=== PATIENT | male | born 1970 | race Caucasian/White ===

== ENCOUNTER 2017-11-15 11:40 | Emergency (ER) | payer OTHER ==
[2017-11-15] MEDS ORDERED: 0.9 % SODIUM CHLORIDE 1,000 ML BAG IV ONE (13:40)
[2017-11-15] MEDS ORDERED: ONDANSETRON HCL IV 4 MG/2 ML VIAL IVP ONE (13:40)
--- NOTE | 2017-11-15 13:41 | Emergency Department Record ---
History of Present Illness - General Chief complaint: Nausea, Vomiting, Diarrhea Stated complaint: NAUSEA/DIZZINESS Time Seen by Provider: 11/15/17 13:31 Source: Patient Mode of Arrival: Ambulatory Limitations: No limitations - History of Present Illness Initial comments: 47 yo male presents with feeling weak, lightheaded, mild nausea, few loose stools per day since Tuesday. He had been in the [facility]. The symptoms started after. Nausea is without vomiting. The diarrhea is non bloody. In the last two hours he has a very mild headache. No fevers. No chills. No vision changes. No sore throat. No abdominal pain. He is not on any prescriptions. MD complaint: Diarrhea, Nausea, Other Onset/Timin -: Days(s) (4 days) Description of Vomiting: Watery Description of Diarrhea: Water Radiation: None Consistency: Constant Improves with: None Worsens with: None - Related Data Previous Rx's Medication Instructions Recorded Ondansetron [Zofran Odt] 4 mg PO Q8H #15 tab.rapdis 11/15/17 Allergies Allergy/AdvReac Type Severity Reaction Status Date / Time No Known Drug Allergies Allergy Verified 11/15/17 13:02 Travel Screening - Travel/Exposure Within Last 30 Days Have you traveled within the last 30 days?: No - Travel/Exposure Within Last Year Have you traveled outside the [place] in the last year?: No - Additonal Travel Details Have you been exposed to anyone with a communicable illness?: No - Travel Symptoms Symptom Screening: None Review of Systems Constitutional: Reports: Malaise, Weakness. Denies: Chills, Fever Eyes: Denies: Eye discharge, Eye pain, Photophobia, Vision change ENT: Denies: Congestion, Throat pain Respiratory: Denies: Cough, Dyspnea Cardiovascular: Denies: Chest pain, Palpitations, Syncope Endocrine: Reports: Fatigue. Denies: Polydipsia, Polyuria Gastrointestinal: Reports: Diarrhea, Nausea. Denies: Abdominal pain, Constipation, Hematemesis, Hematochezia, Melena, Vomiting Genitourinary: Denies: Dysuria, Frequency, Hematuria Musculoskeletal: Denies: Arthralgia, Back pain, Myalgia Skin: Denies: Bruising, Change in color, Rash Neurological: Reports: Headache, Vertigo. Denies: Abnormal gait, Confusion, Numbness, Paresthesias, Seizure, Tingling, Tremors, Weakness Psychiatric: Denies: Anxiety, Suicidal thoughts Hematological/Lymphatic: Denies: Blood Clots, Easy bleeding, Easy bruising, Swollen glands Past Medical History - SOCIAL HISTORY Smoking Status: Former smoker Alcohol Use: Occasional Drug Use: None - RESPIRATORY Hx Respiratory Disorders: No - CARDIOVASCULAR Hx Cardio Disorders: No - NEURO Hx Neuro Disorders: No - GI Hx GI Disorders: Yes Hx Ulcer: Yes - Hx Genitourinary Disorders: No - ENDOCRINE Hx Endocrine Disorders: No - MUSCULOSKELETAL Hx Musculoskeletal Disorders: No - PSYCH Hx Psych Problems: No - HEMATOLOGY/ONCOLOGY Hx Hematology/Oncology Disorders: No Family Medical History Any Significant Family History?: No Physical Exam - General General Appearance: Alert, Oriented x3, Cooperative, No acute distress Limitations: No limitations - Head Head exam: Normal inspection - Eye Eye exam: Normal appearance, PERRL. negative: Conjunctival injection, Scleral icterus - ENT ENT exam: Normal exam, Mucous membranes moist Ear exam: Normal external inspection Nasal Exam: Normal inspection Mouth exam: Normal external inspection - Neck Neck exam: Normal inspection - Respiratory Respiratory exam: Normal lung sounds bilaterally. negative: Respiratory distress - Cardiovascular Cardiovascular Exam: Regular rate, Normal rhythm, Normal heart sounds - GI/Abdominal GI/Abdominal exam: Soft. negative: Tenderness - Rectal Rectal exam: Deferred - exam: Deferred - Extremities Extremities exam: Normal inspection, Normal capillary refill - Back Back exam: Denies: CVA tenderness (R), CVA tenderness (L) - Neurological Neurological exam: Alert, CN II-XII intact, Normal gait, Oriented X3. negative : Abnormal gait, Altered, Motor sensory deficit - Psychiatric Psychiatric exam: Normal affect, Normal mood. negative: Agitated, Anxious - Skin Skin exam: Dry, Intact, Normal color, Warm Course Vital Signs 11/15/17 12:52 Temperature 97.9 F Pulse Rate 74 Respiratory 16 Rate Blood Pressure 133/99 Pulse Ox 96 - Reevaluation(s) Reevaluation #1: 11/15/17 14:33 The labs were reviewed No acute changes The NS was infused The patient feels greatly improved. No headache, nausea, lightheadedness. Medical Decision Making - Lab Data Result diagrams: 11/15/17 13:51 11/15/17 13:51 Lab Results 11/15/17 Range/Units 13:04 POC Glucose 99 (70-110) mg/dL Disposition Disposition: Discharge Clinical Impression: Dehydration Diarrhea Qualifiers: Diarrhea type: unspecified type Qualified Code(s): R19.7 - Diarrhea, unspecified Disposition: Home, Self-Care Condition: (1) Good Instructions: Acute Nausea and Vomiting (ED), Acute Diarrhea (ED) Additional Instructions: Rest and stay well hydrated the next 2-3 days You may take Zofran as directed for nausea Return or be seen if the symptoms return, any new concerns or symptoms Prescriptions: Ondansetron [Zofran Odt] 4 mg PO Q8H #15 tab.rapdis Forms: Patient Portal Access Time of Disposition: 14:35 Quality - Quality Measures Quality Measures: N/A - Blood Pressure Screening Does Patient Have Any of the Following: No Blood Pressure Classification: Hypertensive Reading Systolic Measurement: 127 Diastolic Measurement: 95 Screening for High Blood Pressure: < Pre-Hypertensive BP, F/U Documented > [ [id number]] Pre-Hypertensive Follow-up Interventions: Referral to alternative/primary care provider.
[2017-11-15 13:58] LABS: BASO % 0.4 % (0-6); EOS % 0.9 % (0-6); GRAN % 61.5 % (47-80); HEMATOCRIT 43.8 % (42.0-52.0); HEMOGLOBIN 15.5 gm/dl (14.0-18.0); LYMPH % 29.2 % (16-45); MEAN CELL VOLUME 92.8 fl (81-97); MEAN CORPUSCULAR HEMOGLOBIN 32.8 pg (27-33); MEAN CORPUSCULAR HGB CONC 35.4 g/dl (32-36); MEAN PLATELET VOLUME 10.1 fl (7.4-10.4); PLATELET COUNT 204 K/uL (130-400); RED BLOOD COUNT 4.72 M/uL (4.40-5.70); RED CELL DISTRIBUTION WIDTH 12.7 % (11.5-14.5); WHITE BLOOD COUNT W/O DIFF 5.5 K/uL (4.2-12.2)
[2017-11-15 14:13] LABS: BLOOD UREA NITROGEN 18 mg/dL (6-20); CREATININE 0.9 mg/dL (0.7-1.2); EST GLOMERULAR FILTRATION RATE > 60 mL/min
[2017-11-15 14:14] LABS: TOTAL PROTEIN 7.8 g/dL (6.6-8.7)
[2017-11-15 14:16] LABS: GLUCOSE,RANDOM 101 mg/dL (74-109)
[2017-11-15 14:18] LABS: ALT/SGPT 47 U/L (<41)
[2017-11-15 14:19] LABS: ALB/GLOB RATIO 1.9 (1.1-1.8); ALBUMIN 5.1 g/dL (4.0-5.0); ALKALINE PHOSPHATASE 60 U/L (40-129); AST/SGOT 28 U/L (10.0-50.0)
[2017-11-15 14:30] LABS: THYROID STIMULATING HORMONE 1.08 uIU/mL (0.270-4.20)
== END 2017-11-15 14:46 | disposition home or self-care (01) ==
LOC: ER 11:40
DX: E86.0 Dehydration (principal); R11.2 Nausea with vomiting, unspecified; R19.7 Diarrhea, unspecified; R53.1 Weakness
CPT/HCPCS: 99284 ×2; 96374; 96361; 85025; 80053; 36416; 82948; 84443; J2405; J7030

== ENCOUNTER 2019-02-07 06:04 | Day surgery (SDC) | payer OTHER ==
[2019-02-07] MEDS ORDERED: LIDOCAINE 2% MDV (20MG/ML) 20ML VIAL IV ONE (06:05)
[2019-02-07] MEDS ORDERED: PROPOFOL 10 MG/ML VIAL IV ONE (06:05)
[2019-02-07] MEDS ORDERED: RINGERS SOLUTION,LACTATED 1,000 ML IV ONE (06:33)
[2019-02-07] MEDS ORDERED: LIDOCAINE 1% W/EPI 1:200,000 MPF 30ML SQ ONE (07:50)
[2019-02-07] MEDS ORDERED: DEXAMETHASONE PRESERVATIVE FREE 10MG/ML VIAL SQ ONE (07:50)
[2019-02-07] MEDS ORDERED: BUPIVACAINE 0.5% W/EPI MPF 30 ML VIAL SQ ONE (07:50)
[2019-02-07] MEDS ORDERED: BUPIVACAINE 0.25% PF (2.5MG/ML) 10ML VIAL IM ONE (07:50)
--- NOTE | 2019-02-08 13:51 | Operative Note ---
DATE OF SURGERY: 02/07/2019 PREOPERATIVE DIAGNOSIS: Cervical spondylosis without myelopathy, ICD10 code M47.812. OPERATION: Fluoroscopic-guided infiltration of block bilateral cervical facets 2-3, 3-4, and 4-5. ANESTHESIA PROVIDER: Tsering Cartwright INDICATION: This patient presents with pain which is neck and head. Examination showed tenderness of cervical spine. Range of motion does cause pain in the neck with extension. Diagnostic studies showed diffuse spondylitic change. PROCEDURE: Intravenous line, vital sign monitoring, IV sedation, prepped and draped in sterile technique. Under imaging, cervical facet levels at 2-3, 3-4, and 4-5 were identified and marked bilaterally. Skin infiltrated. A 25-gauge 3- 1/2 inch needle into the facet with 1 mL of 0.5% Marcaine and dexamethasone injected. This was repeated bilaterally. Areas cleaned. Topical antibiotic and sterile dressing applied. Will monitor and evaluate. MTDD
== END 2019-02-07 08:30 | disposition home or self-care (01) ==
LOC: SUR 06:04
PROVIDERS: ATTEND Pain Medicine Interventional Pain Medicine
DX: M47.812 Spondylosis without myelopathy or radiculopathy, cervical region (principal); G47.33 Obstructive sleep apnea (adult) (pediatric)
CPT/HCPCS: J7120

== ENCOUNTER 2019-04-04 05:37 | Day surgery (SDC) | payer OTHER ==
[2019-04-04] MEDS ORDERED: FENTANYL PF 100MCG/2ML VIAL IV ONE (05:38)
[2019-04-04] MEDS ORDERED: MIDAZOLAM HCL 2MG/2ML VIAL IV ONE (05:38)
[2019-04-04] MEDS ORDERED: PROPOFOL 10 MG/ML VIAL IV ONE (05:38)
[2019-04-04] MEDS ORDERED: LIDOCAINE 2% MDV (20MG/ML) 20ML VIAL IV ONE (05:38)
[2019-04-04] MEDS ORDERED: RINGERS SOLUTION,LACTATED 1,000 ML IV ONE (06:00)
[2019-04-04] MEDS ORDERED: DEXAMETHASONE PRESERVATIVE FREE 10MG/ML VIAL IM ONE (07:30)
[2019-04-04] MEDS ORDERED: BUPIVACAINE 0.5% W/EPI MPF 30 ML VIAL SQ ONE (07:30)
[2019-04-04] MEDS ORDERED: LIDOCAINE 1% W/EPI 1:100,000 MDV 20 ML VIAL SQ ONE (07:30)
--- NOTE | 2019-04-04 08:56 | Operative Note - [place] ---
DATE OF SURGERY: 04/04/2019 PREOPERATIVE DIAGNOSIS: CERVICAL SPONDYLOSIS WITHOUT MYELOPATHY, ICD-10 CODE M47.812. OPERATION: RADIOFREQUENCY RHIZOTOMY BILATERAL CERVICAL FACETS C2-C3, C3-C4, AND C4-C5. SURGEON: Julius Deluca D.O. ANESTHESIA: Local sedation. ANESTHESIA PROVIDER: PREETI Solis CRNA INDICATION: This patient presents with neck pain. Examination shows tenderness cervical spine. Range of motion does cause pain to the neck with extension. Diagnostics show auto-fusion at C3-C4 and diffuse spondylitic change. PROCEDURE: Intravenous line, vital sign monitoring, IV sedation, prepped and draped, sterile technique. Under imaging the cervical facet levels at C2-C3, C3-C4, and C4-C5 were identified and marked, skin infiltrated. A 20-gauge rhizotomy cannula was positioned bilaterally, stimulation trial was conducted. Rhizotomy burn 80 degrees 90 seconds at each. Local anti-inflammatory in the sites. Topical antibiotic, sterile dressing applied. Will monitor and evaluate. JOB NUMBER: [id number] MTDD
== END 2019-04-04 08:35 | disposition home or self-care (01) ==
LOC: SUR 05:37
PROVIDERS: ATTEND Pain Medicine Interventional Pain Medicine
DX: M47.812 Spondylosis without myelopathy or radiculopathy, cervical region (principal); G47.33 Obstructive sleep apnea (adult) (pediatric)
CPT/HCPCS: J7120